=== PATIENT | female | born 1945 | race Two or more races ===

== ENCOUNTER 2021-05-17 12:48 | Inpatient (IN) | payer MEDICARE, MEDICAID ==
[~2021-05-17] VITALS: Ht 162.6 cm; Wt 79.7 kg
[2021-05-17 14:52] LABS: Alanine Aminotransferase 43 U/L (13-56); Albumin 3.2 g/dL (3.4-5.0); Anion Gap 8 (5-15); Aspartate Aminotransferase 65 U/L (15-37); BUN/Creatinine Ratio 9.4; Blood Urea Nitrogen 5 mg/dL (7-18); Calcium 8.2 mg/dL (8.5-10.1); Carbon Dioxide 22 mmol/L (21-32); Chloride 110 mmol/L (98-107); GFR African American 144 mL/min; GFR Non-African American 119 mL/min; Glucose 84 mg/dL (74-106); Magnesium 1.6 mg/dL (1.6-2.6); Potassium 3.5 mmol/L (3.5-5.1); Sodium 140 mmol/L (136-145)
[2021-05-17 14:57] LABS: Alkaline Phosphatase 144 U/L (45-117); Total Protein 7.4 g/dL (6.4-8.2)
[2021-05-17 15:05] LABS: Eosinophils # (auto) 0 10 ^3/uL (0-0.8); Monocytes # (auto) 0.6 10 ^3/uL (0-1.3); Nucleated Red Blood Cells % 0.3 %; Red Cell Distribution Width 13.5 % (11.8-14.3)
[2021-05-17 15:07] LABS: Basophils # (auto) 0.1 10 ^3/uL (0-0.2); Basophils % (auto) 1.5 % (0.0-2.0); Hematocrit 44.1 % (36.0-46.0); Hemoglobin 15.7 g/dL (12.2-16.2); Lymphocytes # (auto) 1.3 10 ^3/uL (0.4-5.4); Lymphocytes % (auto) 24.5 % (10.0-50.0); Mean Corpuscular Hgb Conc. 35.5 g/dL (32.0-36.0); Mean Corpuscular Volume 101.4 fL (80.0-100.0); Monocytes % (auto) 11.5 % (0.0-12.0); Neutrophils # (auto) 3.2 10 ^3/uL (1.6-8.6); Neutrophils % (auto) 62.5 % (37.0-80.0); Red Blood Cells 4.34 10^6/uL (4.0-5.20); White Blood Cell 5.1 10^3/uL (4.4-10.8)
[2021-05-17 15:28] LABS: Urine Bacteria NONE SEEN /hpf (None Seen); Urine Blood Negative /uL (Negative); Urine Specific Gravity 1.006 (1.001-1.035); Urine WBC 1 /hpf (0 - 5)
[2021-05-17] MEDS ORDERED: AZITHROMYCIN 500MG/ 250ML 250 ML IV ONE (16:00)
[2021-05-17] MEDS ORDERED: cefTRIAXone 1GM/50ML D5W 50 ML IV ONE (16:00)
[2021-05-17] MEDS ORDERED: SODIUM CHLORIDE 0.9% 500 ML IV ONE (16:00)
[2021-05-17] MEDS ORDERED: MORPHINE SULFATE INJECTION 2 MG/2 ML SYRG IV PRN ×2 (16:15)
[2021-05-17] MEDS ORDERED: hydrALAZINE HCL 20 MG/ML VL IV PRN (16:15)
[2021-05-17] MEDS ORDERED: DEXTROSE (50%) 50ML SYRG IV PRN (16:15)
[2021-05-17] MEDS ORDERED: ACETAMINOPHEN 500 MG TAB PO PRN (16:15)
[2021-05-17] MEDS ORDERED: NITROGLYCERIN 0.4 MG SL TAB SL PRN (16:15)
[2021-05-17] MEDS ORDERED: ONDANSETRON HCL 4 MG/2 ML VIAL IV PRN (16:15)
[2021-05-17] MEDS ORDERED: HYDROcodone-ACET 5/325MG TAB PO PRN (16:15)
[2021-05-17] MEDS: InsuLIN REG 1unit/0.01ml Soln (100units/ml) SC SCH ×2 (17:00→23:00)
[2021-05-17] MEDS: ACCU-CHEK COMFORT CURVE STRIP VI SCH ×2 (17:16→23:00)
[2021-05-17] MEDS: METOPROLOL TARTRATE 25 MG TAB PO SCH (22:55)
[2021-05-18] MEDS: InsuLIN REG 1unit/0.01ml Soln (100units/ml) SC SCH ×4 (07:00→20:59)
[2021-05-18] MEDS: ACCU-CHEK COMFORT CURVE STRIP VI SCH ×4 (07:37→21:04)
[2021-05-18 09:00] VITALS: BP 140/77
[2021-05-18] MEDS: ASPirin-EC 81 mg tab PO SCH (11:00)
[2021-05-18] MEDS: FUROSEMIDE 20 MG/2 ML VIAL IV SCH (11:00)
[2021-05-18] MEDS: LISINOPRIL 10 MG TAB PO SCH (11:00)
[2021-05-18] MEDS: METOPROLOL TARTRATE 25 MG TAB PO SCH ×2 (11:01→21:18)
[2021-05-18] MEDS ORDERED: ENAL20TA8 PO (13:09)
[2021-05-18] MEDS ORDERED: ENOXAPARIN SOD 100 MG/1 ML SYRINGE SC ONE (14:15)
[2021-05-18 14:38] VITALS: BP 139/77
[2021-05-18] MEDS ORDERED: IOHEXOL 350 MG/ML 100ML IJ ONE (16:28)
[2021-05-18 16:59] VITALS: BP 138/71
[2021-05-18] MEDS ORDERED: MAGNESIUM SULFATE 1GM/100ML 100 ML IV ONE (17:15)
[2021-05-18] MEDS: ENOXAPARIN SOD 100 MG/1 ML SYRINGE SC SCH (21:04)
[2021-05-18] MEDS: ACETYLCYSTEINE ORAL for CIN 20%(200MG/ML) 4ML PO SCH (21:18)
[2021-05-18 22:00] VITALS: BP 119/55
[2021-05-19 05:00] VITALS: BP 130/64
[2021-05-19] MEDS: InsuLIN REG 1unit/0.01ml Soln (100units/ml) SC SCH ×4 (06:14→22:43)
[2021-05-19] MEDS: ACCU-CHEK COMFORT CURVE STRIP VI SCH ×4 (06:14→22:41)
[2021-05-19 06:51] LABS: Basophils # (auto) 0.1 10 ^3/uL (0-0.2); Eosinophils # (auto) 0 10 ^3/uL (0-0.8); Hematocrit 39.5 % (36.0-46.0); Lymphocytes # (auto) 1.2 10 ^3/uL (0.4-5.4); Red Blood Cells 3.87 10^6/uL (4.0-5.20)
[2021-05-19 06:54] LABS: Basophils % (auto) 1.4 % (0.0-2.0); Lymphocytes % (auto) 28.5 % (10.0-50.0); Mean Corpuscular Hemoglobin 36.2 pg (28.0-32.0); Mean Corpuscular Hgb Conc. 35.4 g/dL (32.0-36.0); Mean Corpuscular Volume 102.3 fL (80.0-100.0); Monocytes # (auto) 0.4 10 ^3/uL (0-1.3); Monocytes % (auto) 9.4 % (0.0-12.0); Neutrophils # (auto) 2.7 10 ^3/uL (1.6-8.6); Neutrophils % (auto) 60.7 % (37.0-80.0); Nucleated Red Blood Cells % 0.3 %; Red Cell Distribution Width 13.5 % (11.8-14.3); White Blood Cell 4.4 10^3/uL (4.4-10.8)
[2021-05-19 07:05] LABS: INR 1.31 (0.9-1.15); Partial Thromboplastin Time 34.9 sec (23.6-33.0)
[2021-05-19 07:14] LABS: Calcium 8.4 mg/dL (8.5-10.1); Chloride 109 mmol/L (98-107); Potassium 3.9 mmol/L (3.5-5.1); Sodium 139 mmol/L (136-145)
[2021-05-19 07:23] LABS: Alanine Aminotransferase 36 U/L (13-56); Albumin 2.7 g/dL (3.4-5.0); Alkaline Phosphatase 121 U/L (45-117); Anion Gap 4 (5-15); Aspartate Aminotransferase 53 U/L (15-37); BUN/Creatinine Ratio 18.2; Blood Urea Nitrogen 10 mg/dL (7-18); Carbon Dioxide 26 mmol/L (21-32); GFR African American 138 mL/min; GFR Non-African American 114 mL/min; Glucose 83 mg/dL (74-106); Phosphorus 3.3 mg/dL (2.5-4.90); Total Protein 6.6 g/dL (6.4-8.2); Uric Acid 4.4 mg/dL (2.6-6.0)
[2021-05-19] MEDS ORDERED: SODIUM CHL 0.9% 0 ML ONE (07:27)
[2021-05-19] MEDS ORDERED: fentaNYL CITRATE 100 MCG/2 ML VL ONE (07:27)
[2021-05-19] MEDS ORDERED: MIDAZOLAM HCL 2MG/2ML 2ml VIAL (1mg/ml) ONE (07:27)
[2021-05-19] MEDS ORDERED: ANGIOMAX 250 MG VIAL IV ONE (07:27)
[2021-05-19] MEDS ORDERED: IODIXANOL 320MG/ML 100ML BTL IV ONE (07:28)
[2021-05-19] MEDS ORDERED: LIDOCAINE 2%HCL (LOCAL ANESTH.) INJ 20ML MDV ONE (07:28)
[2021-05-19] MEDS: ENOXAPARIN SOD 100 MG/1 ML SYRINGE SC SCH ×2 (10:38→22:00)
[2021-05-19] MEDS: LISINOPRIL 10 MG TAB PO SCH (10:39)
[2021-05-19] MEDS: METOPROLOL TARTRATE 25 MG TAB PO SCH ×2 (10:40→22:40)
[2021-05-19] MEDS: ASPirin-EC 81 mg tab PO SCH (10:40)
[2021-05-19] MEDS: FUROSEMIDE 20 MG/2 ML VIAL IV SCH (10:40)
[2021-05-19] MEDS: ACETYLCYSTEINE ORAL for CIN 20%(200MG/ML) 4ML PO SCH ×2 (11:24→22:41)
[2021-05-19 13:00] VITALS: BP 114/64
[2021-05-19 16:21] VITALS: BP 117/71
[2021-05-19 22:00] VITALS: BP 118/54
[2021-05-20 05:00] VITALS: BP 114/59
[2021-05-20] MEDS: ACCU-CHEK COMFORT CURVE STRIP VI SCH (06:31)
[2021-05-20] MEDS: InsuLIN REG 1unit/0.01ml Soln (100units/ml) SC SCH (06:32)
[2021-05-20 08:24] VITALS: BP 123/59
[2021-05-20] MEDS: METOPROLOL TARTRATE 25 MG TAB PO SCH (09:49)
[2021-05-20] MEDS: LISINOPRIL 10 MG TAB PO SCH (09:49)
[2021-05-20] MEDS: FUROSEMIDE 20 MG/2 ML VIAL IV SCH (09:49)
[2021-05-20] MEDS: ASPirin-EC 81 mg tab PO SCH (09:49)
== END 2021-05-20 10:00 | disposition home or self-care (01) | DRG 192 ==
LOC: ER 12:48 → TELE 16:13 → TELE-CENTR 05-18 08:40
PROVIDERS: ADMIT Nurse Practitioner Acute Care; ATTEND Family Medicine
PROC: 4A023N8 Measurement of Cardiac Sampling and Pressure, Bilateral, Percutaneous Approach (ICD-10-PCS; principal; 2021-05-19)
PROC: B211YZZ Fluoroscopy of Multiple Coronary Arteries using Other Contrast (ICD-10-PCS; 2021-05-19)
PROC: B215YZZ Fluoroscopy of Left Heart using Other Contrast (ICD-10-PCS; 2021-05-19)
DX: I11.0 Hypertensive heart disease with heart failure (principal); J18.9 Pneumonia, unspecified organism; I27.22 Pulmonary hypertension due to left heart disease; D69.59 Other secondary thrombocytopenia; E88.09 Other disorders of plasma-protein metabolism, not elsewhere classified; K74.60 Unspecified cirrhosis of liver; E11.9 Type 2 diabetes mellitus without complications; D75.89 Other specified diseases of blood and blood-forming organs; E86.0 Dehydration; E66.01 Morbid (severe) obesity due to excess calories; I50.33 Acute on chronic diastolic (congestive) heart failure; I05.0 Rheumatic mitral stenosis; E78.5 Hyperlipidemia, unspecified; Z20.822 Contact with and (suspected) exposure to COVID-19; K75.81 Nonalcoholic steatohepatitis (NASH); Z68.30 Body mass index [BMI] 30.0-30.9, adult; Z79.84 Long term (current) use of oral hypoglycemic drugs
CPT/HCPCS: 36415; 70450; 71045; 71275; 76705; 80053; 81001; 82306; 82962; 83036; 83605; 83735; 83880; 84100; 84443; 84484; 84550; 85025; 85379; 85610; 85730; 86141; 87040; 87077; 87426; 93005; 93306; 93460; 93970; 96365; 99152; 99153; C1751; G0378; J0696; J1815; J2250; J2405; Q9967

== ENCOUNTER → 2023-07-05 | Outpatient (CLI) | payer MEDICARE, MEDICAID ==
[~2023-07-05] VITALS: Ht 149.9 cm; Wt 81.6 kg
[~2023-07-05] MED LIST: ADENOSINE 69 MG in GIVE UN-DILUTED 0 ML IV ONE; ADENOSINE 90 MG/30 ML INJ IV ONE; AMIO200T13 PO; APIX2.5T PO; ATOR40TA52 PO; CEPH250C PO; ENAL1TAB48 PO; FURO40TA4 PO; METO-289 PO; MONT-8 PO; POTA-264
== END | disposition home or self-care (01) ==
LOC: Rad HDHVI 08:57
PROVIDERS: ATTEND Internal Medicine Cardiovascular Disease
DX: Z01.810 Encounter for preprocedural cardiovascular examination (principal); I11.0 Hypertensive heart disease with heart failure; I50.32 Chronic diastolic (congestive) heart failure; I34.2 Nonrheumatic mitral (valve) stenosis; E78.00 Pure hypercholesterolemia, unspecified; I48.0 Paroxysmal atrial fibrillation; Z82.49 Family history of ischemic heart disease and other diseases of the circulatory system; I27.20 Pulmonary hypertension, unspecified
CPT/HCPCS: 78452; 93005; 96374; 96375; A9500; J0153

== ENCOUNTER → 2023-07-11 | Outpatient (CLI) | payer MEDICARE, MEDICAID ==
[~2023-07-11] MED LIST changes: -ADENOSINE 69 MG in GIVE UN-DILUTED 0 ML IV ONE; -ADENOSINE 90 MG/30 ML INJ IV ONE; +AMIO200T33 PO; +AZIT-74 PO; +POTA10TA51 PO
== END | disposition home or self-care (01) ==
LOC: Rad HDHVI 13:07
PROVIDERS: ATTEND Internal Medicine Cardiovascular Disease
DX: I08.3 Combined rheumatic disorders of mitral, aortic and tricuspid valves (principal); I31.39 Other pericardial effusion (noninflammatory); J90 Pleural effusion, not elsewhere classified; I11.9 Hypertensive heart disease without heart failure; R93.89 Abnormal findings on diagnostic imaging of other specified body structures
CPT/HCPCS: 93306

== ENCOUNTER 2023-07-15 12:13 | Inpatient (IN) | payer MEDICARE, MEDICAID ==
[~2023-07-15] VITALS: Ht 152.4 cm; Wt 83.4 kg
[~2023-07-15 12:13] MED LIST changes: -AMIO200T33 PO; -AZIT-74 PO; -POTA10TA51 PO
[2023-07-15 13:24] LABS: Basophils # (auto) 0 10 ^3/uL (0-0.2); Basophils % (auto) 0.6 % (0.0-2.0); Eosinophils # (auto) 0 10 ^3/uL (0-0.8); Hematocrit 47.6 % (36.0-46.0); Hemoglobin 16.1 g/dL (12.2-16.2); Lymphocytes # (auto) 1.3 10 ^3/uL (0.4-5.4); Lymphocytes % (auto) 24.6 % (10.0-50.0); Mean Corpuscular Hemoglobin 33.5 pg (28.0-32.0); Mean Corpuscular Hgb Conc. 33.8 g/dL (32.0-36.0); Monocytes # (auto) 0.6 10 ^3/uL (0-1.3); Monocytes % (auto) 12.2 % (0.0-12.0); Neutrophils # (auto) 3.2 10 ^3/uL (1.6-8.6); Neutrophils % (auto) 62.6 % (37.0-80.0); Nucleated Red Blood Cells % 0.6 %; Red Cell Distribution Width 16.3 % (11.8-14.3); White Blood Cell 5.1 10^3/uL (4.4-10.8)
[2023-07-15 14:01] LABS: Alanine Aminotransferase 39 U/L (7-40); Albumin 3.4 g/dL (3.2-4.8); Alkaline Phosphatase 155 U/L (46-116); Anion Gap 8 (5-15); Aspartate Aminotransferase 72 U/L (13-40); BUN/Creatinine Ratio 17.3 (10.0-20.0); Bilirubin, Total 2.7 mg/dL (0.2-1.0); Blood Urea Nitrogen 14 mg/dL (9-23); Calcium 8.9 mg/dL (8.5-10.1); Carbon Dioxide 28 mmol/L (20-30); Chloride 104 mmol/L (98-107); Glucose 109 mg/dL (74-106); Potassium 3.9 mmol/L (3.5-5.1); Sodium 140 mmol/L (136-145); Total Protein 6.8 g/dL (5.7-8.2)
[2023-07-15 14:06] LABS: Urine Bacteria FEW /hpf (None Seen); Urine Blood Negative /uL (Negative); Urine Clarity HAZY (Clear); Urine Color Yellow (Yellow); Urine Protein, UAD 1+ (Negative); Urine Specific Gravity 1.017 (1.001-1.035); Urine WBC 3 /hpf (0 - 5); Urine pH 6.5 (5.0-8.0)
[2023-07-15] MEDS ORDERED: ACETAMINOPHEN 325 MG TAB PO PRN (14:30)
[2023-07-15] MEDS ORDERED: DEXTROSE (50%) 50ML SYRG IV PRN (14:30)
[2023-07-15] MEDS ORDERED: AZITHROMYCIN 500MG/ 250ML 250 ML IV ONE (14:30)
[2023-07-15] MEDS ORDERED: FUROSEMIDE 20 MG/2 ML VIAL IV ONE (14:30)
[2023-07-15] MEDS ORDERED: MORPHINE SULFATE INJ 2 MG/ml SYRG IV PRN (14:30)
[2023-07-15] MEDS ORDERED: NITROGLYCERIN 0.4 MG SL TAB SL PRN (14:30)
[2023-07-15] MEDS ORDERED: cefTRIAXone 1GM/50ML D5W 50 ML IV ONE (14:30)
[2023-07-15 15:16] LABS: Triglycerides 116 mg/dL (< 150)
[2023-07-15 15:17] LABS: LDL Cholesterol 104 mg/dL (< 100)
[2023-07-15 15:18] LABS: Cholesterol 154 mg/dL (< 200); HDL Cholesterol 33 mg/dL (40-59)
[2023-07-15] MEDS: InsuLIN REG 1unit/0.01ml Soln (100units/ml) SC SCH ×2 (18:05→22:00)
[2023-07-15] MEDS: ACCU-CHEK COMFORT CURVE STRIP VI SCH ×2 (18:05→22:17)
[2023-07-15 21:44] VITALS: PULSE 80; RESP 16; O2SAT 93
[2023-07-15 22:01] VITALS: BP 174/99; PULSE 88; RESP 16; RESP 18; RESP 22; TEMP 98.2; O2SAT 82; O2SAT 94
[2023-07-15] MEDS: APIXABAN 2.5 MG TAB PO SCH (22:14)
[2023-07-15] MEDS: AMIODARONE HCL 200 MG TAB PO SCH (22:14)
[2023-07-15] MEDS: ENALAPRIL MALEATE 10 MG TAB PO SCH (22:15)
[2023-07-16] VITALS (7 sets, daily range): BP systolic 127–151; BP diastolic 69–88; PULSE 75–91; RESP 18–20; TEMP 97.7–98.1; O2SAT 89–95
[2023-07-16 05:53] LABS: Basophils # (auto) 0 10 ^3/uL (0-0.2); Basophils % (auto) 0.5 % (0.0-2.0); Eosinophils # (auto) 0 10 ^3/uL (0-0.8); Hematocrit 45.7 % (36.0-46.0); Hemoglobin 15.4 g/dL (12.2-16.2); Lymphocytes % (auto) 27.9 % (10.0-50.0); Mean Corpuscular Hemoglobin 33.5 pg (28.0-32.0); Mean Corpuscular Hgb Conc. 33.7 g/dL (32.0-36.0); Mean Corpuscular Volume 99.5 fL (80.0-100.0); Monocytes # (auto) 0.5 10 ^3/uL (0-1.3); Monocytes % (auto) 12.5 % (0.0-12.0); Neutrophils # (auto) 2.2 10 ^3/uL (1.6-8.6); Neutrophils % (auto) 59.1 % (37.0-80.0); Nucleated Red Blood Cells % 0.6 %; Red Blood Cells 4.59 10^6/uL (4.0-5.20); Red Cell Distribution Width 16.1 % (11.8-14.3); White Blood Cell 3.6 10^3/uL (4.4-10.8)
[2023-07-16 06:14] LABS: Alanine Aminotransferase 31 U/L (7-40); Albumin 3.1 g/dL (3.2-4.8); Alkaline Phosphatase 150 U/L (46-116); Aspartate Aminotransferase 58 U/L (13-40); BUN/Creatinine Ratio 11.7 (10.0-20.0); Blood Urea Nitrogen 9 mg/dL (9-23); Calcium 8.7 mg/dL (8.7-10.4); Chloride 105 mmol/L (98-107); Glucose 105 mg/dL (74-106); Potassium 3.3 mmol/L (3.5-5.1); Sodium 141 mmol/L (136-145)
[2023-07-16 06:15] LABS: Bilirubin, Total 1.9 mg/dL (0.2-1.0); Total Protein 6.5 g/dL (5.7-8.2)
[2023-07-16] MEDS: InsuLIN REG 1unit/0.01ml Soln (100units/ml) SC SCH ×4 (06:24→22:00)
[2023-07-16] MEDS: ACCU-CHEK COMFORT CURVE STRIP VI SCH ×4 (06:24→22:00)
[2023-07-16 07:03] LABS: Anion Gap 9 (5-15); Carbon Dioxide 27 mmol/L (20-30)
[2023-07-16] MEDS: cefTRIAXone 1GM/50ML D5W 50 ML IV SCH (09:20)
[2023-07-16] MEDS: AZITHROMYCIN 500MG/ 250ML 250 ML IV SCH (09:20)
[2023-07-16] MEDS: ATORVASTATIN 20 MG TAB PO SCH (09:21)
[2023-07-16] MEDS: FUROSEMIDE 20 MG/2 ML VIAL IV SCH (09:21)
[2023-07-16] MEDS: METOPROLOL SUCCINATE XL 50 MG TAB PO SCH (09:22)
[2023-07-16] MEDS: APIXABAN 2.5 MG TAB PO SCH (09:23)
[2023-07-16] MEDS: AMIODARONE HCL 200 MG TAB PO SCH ×2 (09:23→22:59)
[2023-07-16] MEDS: ENALAPRIL MALEATE 10 MG TAB PO SCH ×2 (09:24→22:59)
[2023-07-16] MEDS: POTASSIUM CHL 10 Meq TABLET PO SCH (09:25)
[2023-07-16] MEDS: MONTELUKAST SODIUM 10 MG TAB PO SCH (09:31)
[2023-07-16] MEDS ORDERED: POTASSIUM CHL 20 Meq TABLET PO ONE (11:30)
[2023-07-16] MEDS ORDERED: POTA10TA51 PO (16:02)
[2023-07-16] MEDS ORDERED: ENAL1TAB48 PO (16:02)
[2023-07-16] MEDS ORDERED: FURO40TA4 PO (16:02)
[2023-07-16] MEDS ORDERED: METO-289 PO (16:02)
[2023-07-16] MEDS ORDERED: ATOR40TA52 PO (16:02)
[2023-07-16] MEDS ORDERED: MONT-8 PO (16:02)
[2023-07-17] VITALS (10 sets, daily range): BP systolic 90–164; BP diastolic 50–88; PULSE 68–89; RESP 16–22; TEMP 97.6–98.5; O2SAT 90–98
[2023-07-17] MEDS ORDERED: ALBUTEROL SULF HFA 90MCG INH 200DOSE IN SCH (06:00)
[2023-07-17] MEDS: InsuLIN REG 1unit/0.01ml Soln (100units/ml) SC SCH ×4 (06:01→21:10)
[2023-07-17] MEDS: ACCU-CHEK COMFORT CURVE STRIP VI SCH ×4 (06:01→21:11)
[2023-07-17 06:21] LABS: Basophils # (auto) 0 10 ^3/uL (0-0.2); Basophils % (auto) 0.7 % (0.0-2.0); Eosinophils # (auto) 0 10 ^3/uL (0-0.8); Hematocrit 46.4 % (36.0-46.0); Hemoglobin 15.8 g/dL (12.2-16.2); Lymphocytes # (auto) 1.3 10 ^3/uL (0.4-5.4); Mean Corpuscular Hemoglobin 33.7 pg (28.0-32.0); Mean Corpuscular Hgb Conc. 34.1 g/dL (32.0-36.0); Monocytes # (auto) 0.6 10 ^3/uL (0-1.3); Monocytes % (auto) 13.2 % (0.0-12.0); Neutrophils # (auto) 2.4 10 ^3/uL (1.6-8.6); Neutrophils % (auto) 56.1 % (37.0-80.0); Nucleated Red Blood Cells % 0.7 %; Red Blood Cells 4.69 10^6/uL (4.0-5.20); Red Cell Distribution Width 16.2 % (11.8-14.3); White Blood Cell 4.3 10^3/uL (4.4-10.8)
[2023-07-17 06:28] LABS: Alanine Aminotransferase 35 U/L (7-40); Alkaline Phosphatase 153 U/L (46-116); Anion Gap 6 (5-15); Aspartate Aminotransferase 63 U/L (13-40); BUN/Creatinine Ratio 8.7 (10.0-20.0); Blood Urea Nitrogen 8 mg/dL (9-23); Carbon Dioxide 32 mmol/L (20-30); Chloride 103 mmol/L (98-107); Glucose 102 mg/dL (74-106); INR 1.44 (0.9-1.15); Partial Thromboplastin Time 38.9 SEC (24.5-34.5); Potassium 4.1 mmol/L (3.5-5.1); Prothrombin Time 14.8 sec (9.3-11.8); Sodium 141 mmol/L (136-145)
[2023-07-17 06:29] LABS: Albumin 3.3 g/dL (3.2-4.8); Bilirubin, Total 2.4 mg/dL (0.2-1.0); Total Protein 6.8 g/dL (5.7-8.2)
[2023-07-17] MEDS: MONTELUKAST SODIUM 10 MG TAB PO SCH (09:00)
[2023-07-17] MEDS: POTASSIUM CHL 10 Meq TABLET PO SCH (09:01)
[2023-07-17] MEDS: AMIODARONE HCL 200 MG TAB PO SCH ×2 (09:01→21:10)
[2023-07-17] MEDS: METOPROLOL SUCCINATE XL 50 MG TAB PO SCH (09:02)
[2023-07-17] MEDS: ENALAPRIL MALEATE 10 MG TAB PO SCH ×2 (09:02→21:10)
[2023-07-17] MEDS: AZITHROMYCIN 500MG/ 250ML 250 ML IV SCH (09:03)
[2023-07-17] MEDS: FUROSEMIDE 20 MG/2 ML VIAL IV SCH (09:03)
[2023-07-17] MEDS: ATORVASTATIN 20 MG TAB PO SCH (09:03)
[2023-07-17] MEDS: cefTRIAXone 1GM/50ML D5W 50 ML IV SCH (09:04)
[2023-07-17] MEDS ORDERED: ALBUTEROL SULF 2.5 MG/0.5ML(0.5%) NEB SOLN NEB PRN (14:00)
[2023-07-17 14:03] LABS: Body Fluid Polymorphonuclear 2 % (0-25); Body Fluid Red Blood Cells 5600 CUMM (0-2000); Body Fluid White Blood Cells 150 CUMM (0-200); Body Fluid pH 8
[2023-07-18] MEDS: InsuLIN REG 1unit/0.01ml Soln (100units/ml) SC SCH ×4 (07:00→21:40)
[2023-07-18] MEDS: ACCU-CHEK COMFORT CURVE STRIP VI SCH ×4 (07:00→21:40)
[2023-07-18 08:00] VITALS: BP 137/75; PULSE 80; PULSE 85; RESP 18; TEMP 98.1
[2023-07-18] MEDS: cefTRIAXone 1GM/50ML D5W 50 ML IV SCH (09:00)
[2023-07-18] MEDS: AMIODARONE HCL 200 MG TAB PO SCH ×2 (10:00→21:40)
[2023-07-18] MEDS: MONTELUKAST SODIUM 10 MG TAB PO SCH (10:00)
[2023-07-18] MEDS: ATORVASTATIN 20 MG TAB PO SCH (10:00)
[2023-07-18] MEDS: METOPROLOL SUCCINATE XL 50 MG TAB PO SCH (10:00)
[2023-07-18] MEDS: POTASSIUM CHL 10 Meq TABLET PO SCH (10:00)
[2023-07-18] MEDS: ENALAPRIL MALEATE 10 MG TAB PO SCH ×2 (10:00→21:40)
[2023-07-18] MEDS: FUROSEMIDE 20 MG/2 ML VIAL IV SCH (10:00)
[2023-07-18 10:41] VITALS: O2SAT 92
[2023-07-18 11:05] LABS: Basophils # (auto) 0 10 ^3/uL (0-0.2); Basophils % (auto) 0.4 % (0.0-2.0); Eosinophils # (auto) 0 10 ^3/uL (0-0.8); Eosinophils % (auto) 0.1 % (0.0-7.0); Hematocrit 46.4 % (36.0-46.0); Hemoglobin 15.4 g/dL (12.2-16.2); Lymphocytes # (auto) 1.4 10 ^3/uL (0.4-5.4); Lymphocytes % (auto) 25.7 % (10.0-50.0); Mean Corpuscular Hgb Conc. 33.1 g/dL (32.0-36.0); Mean Corpuscular Volume 99.6 fL (80.0-100.0); Monocytes # (auto) 0.7 10 ^3/uL (0-1.3); Monocytes % (auto) 12.7 % (0.0-12.0); Neutrophils # (auto) 3.4 10 ^3/uL (1.6-8.6); Neutrophils % (auto) 61.1 % (37.0-80.0); Nucleated Red Blood Cells % 0.9 %; Red Blood Cells 4.66 10^6/uL (4.0-5.20); Red Cell Distribution Width 16.4 % (11.8-14.3); White Blood Cell 5.5 10^3/uL (4.4-10.8)
[2023-07-18 11:20] LABS: Alanine Aminotransferase 30 U/L (7-40); Albumin 2.9 g/dL (3.2-4.8); Alkaline Phosphatase 139 U/L (46-116); Anion Gap 7 (5-15); Aspartate Aminotransferase 60 U/L (13-40); BUN/Creatinine Ratio 9.9 (10.0-20.0); Bilirubin, Total 2.4 mg/dL (0.2-1.0); Blood Urea Nitrogen 7 mg/dL (9-23); Calcium 8.5 mg/dL (8.5-10.1); Carbon Dioxide 27 mmol/L (20-30); Chloride 105 mmol/L (98-107); Glucose 100 mg/dL (74-106); Potassium 3.6 mmol/L (3.5-5.1); Sodium 139 mmol/L (136-145); Total Protein 5.9 g/dL (5.7-8.2)
[2023-07-18 14:06] LABS: Albumin, Body Fluid 1.1 g/dL (Not Estab.); Protein, Body Fluid 2.6 g/dL (.)
[2023-07-18 16:30] VITALS: BP 129/68; PULSE 87; RESP 16; TEMP 97.9; O2SAT 94
[2023-07-18 18:48] VITALS: O2SAT 94
[2023-07-18 19:30] VITALS: BP 121/66; PULSE 84; PULSE 86; PULSE 89; RESP 18; TEMP 98.5
[2023-07-18 22:00] VITALS: BP 127/97; PULSE 84; RESP 18; TEMP 98.3; O2SAT 92
[2023-07-19] VITALS (9 sets, daily range): BP systolic 105–139; BP diastolic 57–67; PULSE 66–88; RESP 17–18; TEMP 97.3–98.5; O2SAT 92–99
[2023-07-19] MEDS: ACCU-CHEK COMFORT CURVE STRIP VI SCH ×4 (06:02→21:59)
[2023-07-19] MEDS: InsuLIN REG 1unit/0.01ml Soln (100units/ml) SC SCH ×4 (06:02→21:58)
[2023-07-19] MEDS: ATORVASTATIN 20 MG TAB PO SCH (09:31)
[2023-07-19] MEDS: ENALAPRIL MALEATE 10 MG TAB PO SCH ×2 (09:31→21:50)
[2023-07-19] MEDS: METOPROLOL SUCCINATE XL 50 MG TAB PO SCH (09:32)
[2023-07-19] MEDS: MONTELUKAST SODIUM 10 MG TAB PO SCH (09:33)
[2023-07-19] MEDS: FUROSEMIDE 20 MG/2 ML VIAL IV SCH (09:33)
[2023-07-19] MEDS: cefTRIAXone 1GM/50ML D5W 50 ML IV SCH (09:33)
[2023-07-19] MEDS: POTASSIUM CHL 10 Meq TABLET PO SCH (09:33)
[2023-07-19] MEDS: AMIODARONE HCL 200 MG TAB PO SCH ×2 (09:33→21:50)
[2023-07-19] MEDS: AZITHROMYCIN 250 MG TAB PO SCH (11:07)
[2023-07-20] VITALS (7 sets, daily range): BP systolic 115–133; BP diastolic 67–80; PULSE 69–95; RESP 16–18; TEMP 97.5–97.7; O2SAT 93–97
[2023-07-20] MEDS: ACCU-CHEK COMFORT CURVE STRIP VI SCH ×3 (05:32→17:00)
[2023-07-20] MEDS: InsuLIN REG 1unit/0.01ml Soln (100units/ml) SC SCH ×3 (05:32→17:00)
[2023-07-20] MEDS: cefTRIAXone 1GM/50ML D5W 50 ML IV SCH (09:17)
[2023-07-20] MEDS: ENALAPRIL MALEATE 10 MG TAB PO SCH ×2 (09:22→09:24)
[2023-07-20] MEDS: AZITHROMYCIN 250 MG TAB PO SCH (09:23)
[2023-07-20] MEDS: ATORVASTATIN 20 MG TAB PO SCH (09:24)
[2023-07-20] MEDS: POTASSIUM CHL 10 Meq TABLET PO SCH (09:25)
[2023-07-20] MEDS: AMIODARONE HCL 200 MG TAB PO SCH (09:25)
[2023-07-20] MEDS: MONTELUKAST SODIUM 10 MG TAB PO SCH (09:25)
[2023-07-20] MEDS: METOPROLOL SUCCINATE XL 50 MG TAB PO SCH (09:25)
[2023-07-20] MEDS: FUROSEMIDE 20 MG/2 ML VIAL IV SCH (09:26)
[2023-07-20] MEDS ORDERED: AZIT-74 PO (13:56)
[2023-07-20] MEDS ORDERED: AMIO200T33 PO (13:57)
== END 2023-07-20 18:35 | disposition home or self-care (01) | DRG 194 ==
LOC: ER 12:13 → TELE 14:27 → TELE-WESTW 21:56
PROVIDERS: ADMIT Nurse Practitioner Family; ATTEND Internal Medicine
PROC: 0W9B3ZZ Drainage of Left Pleural Cavity, Percutaneous Approach (ICD-10-PCS; principal; 2023-07-17)
DX: I11.0 Hypertensive heart disease with heart failure (principal); J15.9 Unspecified bacterial pneumonia; D68.59 Other primary thrombophilia; D69.6 Thrombocytopenia, unspecified; K74.60 Unspecified cirrhosis of liver; J44.0 Chronic obstructive pulmonary disease with (acute) lower respiratory infection; I50.33 Acute on chronic diastolic (congestive) heart failure; I05.0 Rheumatic mitral stenosis; I48.91 Unspecified atrial fibrillation; E11.9 Type 2 diabetes mellitus without complications; E66.01 Morbid (severe) obesity due to excess calories; R06.03 Acute respiratory distress; E78.5 Hyperlipidemia, unspecified; Z87.01 Personal history of pneumonia (recurrent); Z68.35 Body mass index [BMI] 35.0-35.9, adult; Z71.3 Dietary counseling and surveillance
CPT/HCPCS: 36415; 71045; 71046; 76604; 76942; 80053; 80061; 81001; 82962; 83880; 83986; 84443; 84484; 85025; 85610; 85730; 86850; 86900; 86901; 87205; 89051; 93005; 96365; 99291; G0378; J0696; J1815

== ENCOUNTER → 2023-07-25 | Outpatient (CLI) | payer MEDICARE, MEDICAID ==
[~2023-07-25] MED LIST changes: -AMIO200T13 PO; +AMIO200T33 PO; -APIX2.5T PO; +AZIT-74 PO; -CEPH250C PO; -POTA-264; +POTA10TA51 PO
== END | disposition home or self-care (01) ==
LOC: Rad HDHVI 15:53
PROVIDERS: ATTEND Internal Medicine Cardiovascular Disease
DX: J90 Pleural effusion, not elsewhere classified (principal); R06.02 Shortness of breath
CPT/HCPCS: 71046